=== PATIENT | male | born 1945 | race Caucasian/White ===

== ENCOUNTER 2020-04-16 10:41 | Outpatient (CLI) | payer SELFPAY ==
--- NOTE | 2020-04-16 11:03 | XRR_ITS ---
PROCEDURE INFORMATION: Exam: XR Abdomen, 1 View Exam date and time: 04/16/2020 11:26 AM Age: 75 years old Clinical indication: Other: Chronic diarrhea; Additional info: Abnormal loss weight/chronic diarrhea x 6 weeks TECHNIQUE: Imaging protocol: XR of the abdomen. Views: Frontal supine view of the abdomen. 1 View. COMPARISON: No relevant prior studies available. FINDINGS: Gastrointestinal tract: The bowel gas pattern is nonspecific. Air filled large bowel including distal rectal gas. Moderate amount stool within the large bowel. Bones/joints: Unremarkable. XR/XR [id number] IMPRESSION: The bowel gas pattern is nonspecific. Air filled large bowel including distal rectal gas.
== END 2020-04-16 10:42 | disposition home or self-care (01) ==
LOC: RAD 10:51
PROVIDERS: Visit Provider Electrodiagnostic Medicine
DX: R63.4 Abnormal weight loss (principal); K52.9 Noninfective gastroenteritis and colitis, unspecified
CPT/HCPCS: 74018